=== PATIENT | female | born 1960 | race African-American/Black ===

== ENCOUNTER 2018-06-20 12:27 | Emergency (ER) | payer MEDICAID ==
[~2018-06-20] VITALS: Ht 157.5 cm; Wt 65.0 kg
[2018-06-20] MEDS ORDERED: IBUPROFEN 600MG TABLET PO ONE (13:30)
[2018-06-20 14:45] VITALS: BP 131/90
== END 2018-06-20 14:58 | disposition home or self-care (01) ==
LOC: ER 12:44
DX: M25.461 Effusion, right knee (principal); Z96.651 Presence of right artificial knee joint
CPT/HCPCS: 73562; 99283